=== PATIENT | female | born 1960 | race Caucasian/White ===

== ENCOUNTER → 2017-11-09 10:05 | Outpatient (CLI) | payer OTHER, SELFPAY ==
--- NOTE | 2017-11-09 | DI.CT.S_ITS ---
PROCEDURE: CT UE LT WO CON INDICATIONS: DISORDER OF BONE AND SHOULDER LEFT CALVICLE TECHNIQUE: Noncontrast 1-1.5 mm thick sections acquired from the acromioclavicular joint to the inferior scapula, with coronal and sagittal reformatting. COMPARISON: [facility], CR, XR SHOULDER 2+ VIEWS LEFT, 07/19/2017, 8:03. [facility] [place], CR, XR SHOULDER 2+ VIEWS LEFT, 11/06/2017, 8:44. FINDINGS: Image quality: Excellent. Bones: Patient is status post prior internal fixation of mid to distal left clavicular shaft. Fixation hardware appear grossly intact. No gross hardware loosening or failure. There is healed mid clavicular shaft fracture in anatomic alignment of the left clavicle. No gross acute fracture or dislocation is seen. Acromioclavicular joint and glenohumeral joint spaces are well preserved. No suspicious bony lesion is seen. The visualized portion of left upper ribs are intact. Soft tissues: No gross soft tissue abnormality is seen. No suspicious soft tissue mass or calcification. The visualized portion of left lung is clear. IMPRESSION: 1. Healed mid clavicular shaft fracture with anatomic left clavicular alignment. No gross hardware complication. No acute fracture or dislocation. 2. No gross soft tissue abnormalities seen. Dictated by: Rambo Jones M.D. on 11/09/2017 at 11:52 Approved by: Rambo Jones M.D. on 11/09/2017 at 11:55
== END ==
PROVIDERS: PCP Specialist; Visit Provider Orthopaedic Surgery
DX: M89.8X1 Other specified disorders of bone, shoulder (principal); S42.022S Displaced fracture of shaft of left clavicle, sequela
CPT/HCPCS: 73200

== ENCOUNTER → 2018-04-16 10:39 | Outpatient (CLI) | payer OTHER, SELFPAY ==
--- NOTE | 2018-04-16 | DI.CT.S_ITS ---
PROCEDURE: CT UE LT WO CON INDICATIONS: Displaced fracture of shaft of left clavicle TECHNIQUE: Noncontrast 1-1.5 mm thick sections acquired from the acromioclavicular joint to the inferior scapula, with coronal and sagittal reformatting. COMPARISON: [facility] [place], CR, XR SHOULDER 2+ VIEWS LEFT, 11/06/2017, 8:44. [facility] [place], CR, XR SHOULDER 2+ VIEWS LEFT, 04/02/2018, 7:57. [facility] [place], CR, XR SHOULDER 2+ VIEWS LEFT, 01/30/2018, 12:44. [facility], CT, CT UE LT WO CON, 11/09/2017, 10:08. FINDINGS: Image quality: Excellent. Bones: There is interval removal of surgical plate since the last CT. Old fracture of the left clavicle is noted. No acute fracture is identified. Lucencies within the clavicle are consistent with prior surgical screw tracts. Thoracic spine fusion is noted. Soft tissues: No soft tissue mass or hematoma. Visualized lungs are clear. IMPRESSION: 1. Old left clavicular fracture in the post surgical changes. No acute fractures. Dictated by: Era Rankin M.D. on 04/16/2018 at 11:12 Approved by: Era Rankin M.D. on 04/16/2018 at 14:32
== END ==
PROVIDERS: PCP Family Medicine; Visit Provider Orthopaedic Surgery
DX: S42.022D Displaced fracture of shaft of left clavicle, subsequent encounter for fracture with routine healing (principal)
CPT/HCPCS: 73200

== ENCOUNTER → 2018-12-23 12:18 | Outpatient (CLI) | payer OTHER, SELFPAY | PROVIDERS: PCP Family Medicine; Visit Provider Physician Assistant | DX: J02.9 Acute pharyngitis, unspecified (principal) | CPT/HCPCS: 87070 ==